=== PATIENT | female | born 1975 | race Caucasian/White ===

== ENCOUNTER 2022-01-17 15:52 | Inpatient (IN) | payer OTHER, SELFPAY ==
--- NOTE | ~2022-01-17 | CT_ITS ---
EXAMINATION: CT ABDOMEN AND PELVIS WITHOUT CONTRAST CLINICAL INFORMATION: Bilateral lower quadrant pain COMPARISON: None TECHNIQUE: Multidetector volumetric imaging was performed from the superior aspect of the liver through the pubic symphysis. Sagittal and coronal reformatted images were obtained on the technologist's workstation. This CT examination was performed using dose optimization techniques as appropriate, variously including the following: *Automated exposure control *Adjustment of mA and/or kV according to patient size (this includes techniques or standardized protocols for targeted exams where dose is matched to indication/reason for exam; i.e. extremities or head) *Use of iterative reconstruction technique DLP: 1550 mGy-cm FINDINGS: LUNG BASES: The visualized lung bases are unremarkable. LIVER, GALLBLADDER, AND BILIARY TREE: Liver is mildly enlarged measuring approximately 17.4 cm in craniocaudal dimension. No appreciable liver lesion. No biliary ductal dilation. The gallbladder is unremarkable with no evidence of radiopaque gallstones, gallbladder wall thickening, or obvious pericholecystic inflammatory changes. PANCREAS: Unremarkable. SPLEEN: Unremarkable. ADRENAL GLANDS: Unremarkable. KIDNEYS AND URETERS: The kidneys are normal in size, shape, and attenuation. No hydronephrosis, hydroureter, or calculi seen. No perinephric stranding. BLADDER: Unremarkable. GASTROINTESTINAL TRACT: Sigmoid diverticulosis with segmental mural thickening of the sigmoid colon and extensive pericolonic inflammatory change compatible with acute diverticulitis. There are a few small bubbles of eccentric soft tissue gas, which are not definitely contained within a colonic diverticulum and may represent a small microperforation on coronal image 41, series 3 image 83. No pericolonic or intramural fluid collection/abscess. There is a small amount of nonloculated free pelvic fluid primarily on the left side. No dilated bowel loops or additional bowel wall thickening. ABDOMINAL WALL: Healed lower midline abdominal incision. No hernia. LYMPH NODES: No lymphadenopathy. VASCULAR: Normal caliber abdominal aorta. PELVIC VISCERA: Status post hysterectomy. Small 1.7 cm low-density probable follicle in the right ovary noted. OSSEOUS STRUCTURES: No acute fracture or suspicious osseous lesion. Grade 1 anterolisthesis at L5-S1 related to chronic bilateral L5 pars defects. Moderate disc degenerative change at L5-S1. Mild multilevel degenerative disc disease throughout the remainder the thoracolumbar spine. Small sclerotic probable bone island in the posterior aspect of L2. Mild retrolisthesis at L1-L2. CT/CT abdomen pelvis wo con IMPRESSION: 1. Findings compatible with acute sigmoid diverticulitis and suspected microperforation with extensive pericolonic inflammatory change and a small amount of pericolonic free fluid. No well formed abscess identified.
--- NOTE | ~2022-01-17 | CT_ITS ---
EXAMINATION: CT ANGIOGRAM CHEST CLINICAL INFORMATION: Stabbing pain to the back COMPARISON: None TECHNIQUE: Multiple axial images were obtained through the chest after the administration of 85 mL of Omnipaque 350 intravenous contrast. Extensive vascular post-processing including two-dimensional and three-dimensional reformatted images were created and reviewed on an independent workstation. This CT examination was performed using dose optimization techniques as appropriate, variously including the following: *Automated exposure control *Adjustment of mA and/or kV according to patient size (this includes techniques or standardized protocols for targeted exams where dose is matched to indication/reason for exam; i.e. extremities or head) *Use of iterative reconstruction technique DLP: 673 mGy-cm FINDINGS: Assessment of the aortic root is suboptimal due to cardiac motion artifact. No evidence of aortic aneurysm or dissection. There is common origin of the brachiocephalic and left common carotid arteries off the aortic arch. Included branch vessels in the upper abdomen appear well-opacified. Dependent atelectasis is noted bilaterally. No additional consolidation. Regions of subpleural cyst formation is noted in the basilar right lower lobe, suspicious for mild regions of fibrosis. There is a right upper lobe nodule measuring 6 mm on image 133/616 medially. No pneumothorax or pleural effusion. The visualized thyroid gland is unremarkable. There are subcentimeter mediastinal lymph nodes within the range of normal variation. Cardiac size is within normal limits; no pericardial effusion. Central pulmonary arteries are well-opacified. No axillary lymphadenopathy is present. Visualized portions of the upper abdomen are within normal limits. Multilevel endplate osteophytes are present in the spine. CT/CT angio chest aorta IMPRESSION: 1. No evidence of aortic dissection or aneurysm. 2. Regions of subpleural cyst formation in the basilar right lower lobe, suspicious for mild fibrosis. 3. Right upper lobe nodule measuring 6 mm. According to the UPDATED 2017 Fleischner Society recommendations, the advised follow-up imaging for a single 6-8 mm solid nodule is: LOW RISK PATIENT: CT at 6-12 months, then consider CT at 18-24 months. HIGH RISK PATIENT: CT at 6-12 months, then at 18-24 months.
--- NOTE | 2022-01-17 16:11 | ECG_ITS ---
Test Reason : aabdominal pain Blood Pressure : / mmHG Vent. Rate : 094 BPM Atrial Rate : 094 BPM P-R Int : 158 ms QRS Dur : 086 ms QT Int : 332 ms P-R-T Axes : 000 -13 014 degrees QTc Int : 415 ms Normal sinus rhythm Normal ECG No previous ECGs available Referred By: Mara López Electronically Signed By:WILLARD MARTINEZ MD
[2022-01-17 17:06] VITALS: BP 136/79; PULSE 97; RESP 18; TEMP 38.3; O2SAT 98; BMI 57.4
[2022-01-17 17:08] LABS: MANUAL DIFF FLAG NO
[2022-01-17 17:26] LABS: Basophils Absolute Auto 0.1 X10*3/uL (0.0-0.2); Basophils Percent Auto 0.3 % (0-2); Eosinophils Absolute Auto 0.1 X10*3/uL (0.0-0.4); Eosinophils Percent Auto 0.9 % (0-4); Hematocrit 47.2 % (37.0-47.0); Hemoglobin 15.1 g/dl (12.0-16.0); Imm Gran Abs Auto 0.04 X10*3/uL (0.00-0.03); Imm Gran Pct Auto 0.3 % (0.0-0.4); Lymphocytes Absolute Auto 1.4 X10*3/uL (1.2-4.9); Lymphocytes Percent Auto 9.9 % (20-40); Mean Corpuscular Hemoglobin 28.6 pg (27.0-33.0); Mean Corpuscular Volume 89.4 fL (80.0-98.0); Mean Platelet Volume 10.9 fL (9.4-12.3); Monocytes Absolute Auto 1.3 X10*3/uL (0.1-1.2); Monocytes Percent Auto 8.7 % (2-11); Neutrophils Absolute Auto 11.5 x10*3/uL (2.0-8.3); Neutrophils Percent Auto 79.9 % (45-73); Platelet Count 241 X10*3/uL (160-400); Red Blood Count 5.28 X10*6/uL (4.20-5.50); Red Cell Distribution Width 13.3 % (11.0-16.0); White Blood Count 14.4 X10*3/uL (4.8-10.8)
[2022-01-17 17:27] LABS: Appearance Urine CLEAR; Color Urine YELLOW; Glucose Urine UA NEG (NEG); Leukocyte Esterase Urine NEG (NEG); Nitrite Urine NEG (NEG); Urine Blood NEG (NEG); Urine Ketones NEG (NEG); Urine Protein NEG (NEG-TRACE)
[2022-01-17 17:43] LABS: Alanine Aminotransferase 23 U/L (0-31); Albumin Level 4.1 g/dL (3.5-5.0); Alkaline Phosphatase 97 U/L (39-117); Anion Gap 15 (12-20); Aspartate Amino Transferase 17 U/L (5-31); Bilirubin Direct 0.3 mg/dL (0.0-0.5); Bilirubin Total 0.7 mg/dL (0.0-1.0); Blood Urea Nitrogen 10 mg/dL (9-16); Calcium 9.1 mg/dL (8.4-10.2); Carbon Dioxide 25 mmol/L (22-29); Chloride 102 mmol/L (96-108); Creatinine Clr Calc Pharmacy 140.6; Estimated Glomerular Filt Rate > 60; Glucose Random 97 mg/dL (60-115); Lipase 14 U/L (8-78); Potassium 4.7 mmol/L (3.3-5.1); Sodium 137 mmol/L (135-145); Total Protein 7.5 g/dL (6.5-8.0)
[2022-01-17 17:50] LABS: HCG Quantitative < 2 mIU/mL
--- NOTE | 2022-01-17 18:23 | ED_ITS ---
HPI - Abdominal Pain General Chief Complaint: Abdominal Pain Stated Complaint: severe lower abd pain Time Seen by Provider: 01/17/22 16:11 History of Present Illness HPI narrative: Patient comes to the emergency room complaining of severe left and right lower quadrant pain. Before coming to the emergency room, patient was seen at urgent care. Patient had an acute abdomen and was sent to the emergency room for further evaluation. Patient refused to come by ambulance. Patient states that yesterday around 20:00, he started having intense lower abdominal pain, gradually getting much worse. Related Data Home Medications Medication Instructions Recorded Confirmed acetaminophen 325 mg tablet 650 mg PO Q6H PRN 01/17/22 (Tylenol) cholecalciferol (vitamin D3) 125 125 mcg PO DAILY 01/17/22 mcg (5,000 unit) capsule ferrous sulfate 325 mg (65 mg 325 mg PO DAILY 01/17/22 iron) tablet leflunomide 20 mg tablet 20 mg PO DAILY 01/17/22 valsartan 160 mg tablet 160 mg PO DAILY 01/17/22 Allergies Allergy/AdvReac Type Severity Reaction Status Date / Time No Known Allergies Allergy Verified 01/17/22 17:06 [No Known Allergies*] Review of Systems Review of Systems Constitutional : No Weight loss, No Fever, No Chills, No Night Sweats, No Fatigue, No Malaise ENT/Mouth : No Hearing loss, No Ear Pain, No Nasal Congestion, No Sinus Pain, No Hoarseness, No sore throat, No Rhinorrhea, No Swallowing Difficulty Eyes: No Eye Pain, No Swelling, No Redness, No Foreign Body, No Discharge, No V ision Changes Cardiovascular : No Chest Pain, No SOB, No Dyspnea on Exertion, No Orthopnea, No Edema, No Palpitations Respiratory : No Cough, No Sputum, No Wheezing, No Smoke Exposure, No Dyspnea Gastrointestinal : No Nausea, No Vomiting, No Diarrhea, No Constipation, significant abdominal pain in both lower quadrants Genitourinary : no irregular bleeding, No Dysuria, No Urinary Frequency, No [place] turia, No Urinary Incontinence, No Urgency, No Flank Pain, No Urinary Flow Changes, No Hesitancy Musculoskeletal : No joint pain, No Myalgias, No Joint Swelling Skin : No Skin Lesions, No rash Neuro : No Weakness, No Numbness, No Paresthesias, No Loss of Consciousness, No Dizziness, No Headache Psych : No Anxiety/Panic, No Depression, No SI/HI/AH/VH, No Social Issues, Heme/Lymph: No Bruising, No Bleeding,No Lymphadenopathy Endocrine : No Polyuria, No Polydipsia, No Temperature Intolerance [facility] Past Medical History Medical History (Updated 01/17/22 @ 19:16 by Mara López MD) Hypertension Morbid obesity Surgical History (Updated 01/17/22 @ 18:33 by Mara López MD) History of hysterectomy Social History Social History Advance Directives: No Advance Directives Information Provided: Yes Physical Exam ED Vital Signs: Vital Signs - 24 hr 01/17/22 17:06 01/17/22 18:48 01/17/22 18:53 Temperature 100.9 F H 100.7 F H Pulse Rate 97 100 Respiratory Rate 18 18 19 Blood Pressure 136/79 132/57 L Pulse Oximetry 98 95 Oxygen Delivery Method Room Air BMI result Body Mass Index 57.4 Const Other: Appearance: Alert. Oriented X3. Seems very uncomfortable Eyes: Pupils equal, round and reactive to light. ENT: Pharynx normal. Neck: Normal inspection. Neck supple. No lymph nodes noted. No crepitus CVS: Normal heart rate and rhythm. Pulses normal. Normal S1 and S2 Respiratory: No respiratory distress. Breath sounds normal. No Wheezing. No rales Abdomen: Soft , slightly distended, significant pain to palpation in both lower quadrants Skin: Skin warm and dry. Normal skin color. Normal skin turgor. Extremities: No lower extremity edema. No Lacerations. No Rash Neuro: Oriented X 3. No motor deficit. No sensory deficit. Moving all extremities. No slurred speech. CN 2 through 12 grossly intact Psych: calm, cooperative, normal affect Course Course Course Narrative: I received a phone call from YOUSIF Khan. Unfortunately, this time there are no beds available in the main ED. Labs were obtained since the patient was in the waiting room in order to expedite seeing this patient. I reviewed the CT scan, I believe there is a perforation, free air in the abdomen. We already requested for Radiology to take a look at the CT scan. Patient is receiving IV fluids based on ideal weight of 55 kg, Zosyn has been started. Some of the labs are still pending. CT scan shows diverticulitis with microperforation. I discussed the patient with Dr. Moon, she is on her way to assess the patient. Patient received 1 mg of Dilaudid, did that she feels much better at this time. MDM - Abdominal Pain Lab Data Result diagrams: 01/17/22 17:02 01/17/22 17:02 Labs: Lab Results 01/17/22 01/17/22 01/17/22 Range/Units 17:01 17:02 17:02 WBC 14.4 H (4.8-10.8) X10*3/uL RBC 5.28 (4.20-5.50) X10*6/uL Hgb 15.1 (12.0-16.0) g/dl Hct 47.2 H (37.0-47.0) % MCV 89.4 (80.0-98.0) fL MCH 28.6 (27.0-33.0) pg MCHC 32.0 (31.0-35.0) g/dl RDW 13.3 (11.0-16.0) % Plt Count 241 (160-400) X10*3/uL MPV 10.9 (9.4-12.3) fL Immature Gran % (Auto) 0.3 (0.0-0.4) % Neut % (Auto) 79.9 H (45-73) % Lymph % (Auto) 9.9 L (20-40) % [place] % (Auto) 8.7 (2-11) % Eos % (Auto) 0.9 (0-4) % Baso % (Auto) 0.3 (0-2) % Lymph # (Auto) 1.4 (1.2-4.9) X10*3/uL [place] # (Auto) 1.3 H (0.1-1.2) X10*3/uL Eos # (Auto) 0.1 (0.0-0.4) X10*3/uL Baso # (Auto) 0.1 (0.0-0.2) X10*3/uL Abs Immat Gran (auto) 0.04 H (0.00-0.03) X10*3/uL Absolute Neuts (auto) 11.5 H (2.0-8.3) x10*3/uL Absolute Nucleated RBC 0.000 (0.0-0.012) X10*3/uL Nucleated RBC % (auto) 0.0 (0.0-0.2) /100WBC Sodium 137 (135-145) mmol/L Potassium 4.7 (3.3-5.1) mmol/L Chloride 102 (96-108) mmol/L Carbon Dioxide 25 (22-29) mmol/L Anion Gap 15 (12-20) BUN 10 (9-16) mg/dL Creatinine 0.78 (0.5-1.4) mg/dL Estim Creat Clear Calc 140.6 Estimated GFR > 60 Random Glucose 97 (60-115) mg/dL Lactic Acid (0.5-2.0) mmol/L Calcium 9.1 (8.4-10.2) mg/dL Total Bilirubin 0.7 (0.0-1.0) mg/dL Direct Bilirubin 0.3 (0.0-0.5) mg/dL AST 17 (5-31) U/L ALT 23 (0-31) U/L Alkaline Phosphatase 97 (39-117) U/L Total Protein 7.5 (6.5-8.0) g/dL Albumin 4.1 (3.5-5.0) g/dL Lipase (8-78) U/L Beta HCG, Quant mIU/mL Urine Color YELLOW Urine Appearance CLEAR Urine pH 6.0 (5.0-8.0) Ur Specific [place] 1.020 (1.005-1.025) Urine Protein NEG (NEG-TRACE) MG/DL Urine Glucose (UA) NEG (NEG) MG/DL Urine Ketones NEG (NEG) MG/DL Urine Blood NEG (NEG) Urine Nitrite NEG (NEG) Ur Leukocyte Esterase NEG (NEG) 01/17/22 01/17/22 Range/Units 17:02 18:42 WBC (4.8-10.8) X10*3/uL RBC (4.20-5.50) X10*6/uL Hgb (12.0-16.0) g/dl Hct (37.0-47.0) % MCV (80.0-98.0) fL MCH (27.0-33.0) pg MCHC (31.0-35.0) g/dl RDW (11.0-16.0) % Plt Count (160-400) X10*3/uL MPV (9.4-12.3) fL Immature Gran % (Auto) (0.0-0.4) % Neut % (Auto) (45-73) % Lymph % (Auto) (20-40) % [place] % (Auto) (2-11) % Eos % (Auto) (0-4) % Baso % (Auto) (0-2) % Lymph # (Auto) (1.2-4.9) X10*3/uL [place] # (Auto) (0.1-1.2) X10*3/uL Eos # (Auto) (0.0-0.4) X10*3/uL Baso # (Auto) (0.0-0.2) X10*3/uL Abs Immat Gran (auto) (0.00-0.03) X10*3/uL Absolute Neuts (auto) (2.0-8.3) x10*3/uL Absolute Nucleated RBC (0.0-0.012) X10*3/uL Nucleated RBC % (auto) (0.0-0.2) /100WBC Sodium (135-145) mmol/L Potassium (3.3-5.1) mmol/L Chloride (96-108) mmol/L Carbon Dioxide (22-29) mmol/L Anion Gap (12-20) BUN (9-16) mg/dL Creatinine (0.5-1.4) mg/dL Estim Creat Clear Calc Estimated GFR Random Glucose (60-115) mg/dL Lactic Acid 1.2 (0.5-2.0) mmol/L Calcium (8.4-10.2) mg/dL Total Bilirubin (0.0-1.0) mg/dL Direct Bilirubin (0.0-0.5) mg/dL AST (5-31) U/L ALT (0-31) U/L Alkaline Phosphatase (39-117) U/L Total Protein (6.5-8.0) g/dL Albumin (3.5-5.0) g/dL Lipase 14 (8-78) U/L Beta HCG, Quant < 2 mIU/mL Urine Color Urine Appearance Urine pH (5.0-8.0) Ur Specific [place] (1.005-1.025) Urine Protein (NEG-TRACE) MG/DL Urine Glucose (UA) (NEG) MG/DL Urine Ketones (NEG) MG/DL Urine Blood (NEG) Urine Nitrite (NEG) Ur Leukocyte Esterase (NEG) Imaging Data CT scan - abdomen: Radiologist's impression: FINDINGS: LUNG BASES: The visualized lung bases are unremarkable.? LIVER, GALLBLADDER, AND BILIARY TREE: Liver is mildly enlarged measuring approximately 17.4 cm in craniocaudal dimension. No appreciable liver lesion. No biliary ductal dilation. The gallbladder is unremarkable with no evidence of radiopaque gallstones, gallbladder wall thickening, or obvious pericholecystic inflammatory changes.? PANCREAS: Unremarkable.? SPLEEN: Unremarkable.? ADRENAL GLANDS: Unremarkable.? KIDNEYS AND URETERS: The kidneys are normal in size, shape, and attenuation. No hydronephrosis, hydroureter, or calculi seen. No perinephric stranding. ? BLADDER: Unremarkable.? GASTROINTESTINAL TRACT: Sigmoid diverticulosis with segmental mural thickening of the sigmoid colon and extensive pericolonic inflammatory change compatible with acute diverticulitis. There are a few small bubbles of eccentric soft tissue gas, which are not definitely contained within a colonic diverticulum and may represent a small microperforation on coronal image 41, series 3 image 83. No pericolonic or intramural fluid collection/abscess. There is a small amount of nonloculated free pelvic fluid primarily on the left side. No dilated bowel loops or additional bowel wall thickening. ABDOMINAL WALL: Healed lower midline abdominal incision. No hernia.? LYMPH NODES: No lymphadenopathy. VASCULAR: Normal caliber abdominal aorta. PELVIC VISCERA: Status post hysterectomy. Small 1.7 cm low-density probable follicle in the right ovary noted.? OSSEOUS STRUCTURES: No acute fracture or suspicious osseous lesion. Grade 1 anterolisthesis at L5-S1 related to chronic bilateral L5 pars defects. Moderate disc degenerative change at L5-S1. Mild multilevel degenerative disc disease throughout the remainder the thoracolumbar spine. Small sclerotic probable bone island in the posterior aspect of L2. Mild retrolisthesis at L1-L2.? CT/CT abdomen pelvis wo con IMPRESSION: ? 1. Findings compatible with acute sigmoid diverticulitis and suspected microperforation with extensive pericolonic inflammatory change and a small amount of pericolonic free fluid. No well formed abscess identified. Discharge Plan Discharge Clinical Impression: Diverticulitis of colon with perforation Patient Disposition: Admitted As Inpatient Prescriptions: No Action valsartan 160 mg tablet 160 mg PO DAILY leflunomide 20 mg tablet 20 mg PO DAILY ferrous sulfate 325 mg (65 mg iron) tablet 325 mg PO DAILY cholecalciferol (vitamin D3) 125 mcg (5,000 unit) capsule 125 mcg PO DAILY acetaminophen [Tylenol] 325 mg tablet 650 mg PO Q6H PRN
[2022-01-17] MEDS: 0.9 % Sodium Chloride 2,000 ML 999 ML IVCONT (18:47)
[2022-01-17 18:48] VITALS: RESP 18
[2022-01-17] MEDS: ondansetron HCL 4 MG/2 ML VIAL IVPUSH (18:48)
[2022-01-17] MEDS: HYDROmorphone HCl 1 MG/ML SYRINGE IVPUSH (18:48)
[2022-01-17] MEDS: Piperacillin Sodium/Tazobactam 4.5 GM in 0.9 % Sodium Chloride 100 ML IV (18:50)
[2022-01-17 18:53] VITALS: BP 132/57; PULSE 100; RESP 19; TEMP 38.2; O2SAT 95
[2022-01-17 19:05] LABS: Lactic Acid 1.2 mmol/L (0.5-2.0)
[2022-01-17 19:13] LABS: Prothrombin Time 11.6 SEC (10.0-13.1)
--- NOTE | 2022-01-17 19:31 | PHA.MEDREC ---
Pharmacy Consult ? Medication Reconciliation Pharmacy has completed the medication reconciliation. Pt able to name entire med list at bedside; noted she recently switched from lisinopril to valsartan today. Also noted she uses flecainide and diltiazem as needed for afib, last took in early December.
[2022-01-17 20:57] VITALS: BP 122/49; PULSE 97; RESP 14; O2SAT 98
--- NOTE | 2022-01-17 21:10 | PM.HPGS ---
History of Present Illness History of Present Illness Date of Service: 01/17/22 Chief complaint: Diverticulitis with microperforation Narrative: Caryl Fraga is a 46 year old female who comes in after 3 day history of not feeling well and then having ongoing continuing pain in her suprapubic left lower quadrant area today. She started not feeling well on Saturday after going out in eating. Then the other 2 days were not so bad that things got worse today and as result she came into the hospital. Mainly pain she denies any constipation or diarrhea no blood in her stools no trouble with urination. She denies any fevers or chills. She has never had pain like this before. She has had a hysterectomy about 5 years ago and no other intra-abdominal surgery. She has no family history that she knows of in regards to cancers or diverticulosis. She has never had a colonoscopy before Review of Systems Review of Systems: Yes all other systems are reviewed and are negative PMF Past Medical History Medical History (Updated 01/17/22 @ 19:16 by Mara López MD) Hypertension Morbid obesity Cognitive capacity: hysterectomy Surgical History Surgical History (Updated 01/17/22 @ 18:33 by Mara López MD) History of hysterectomy Social History Social History Alcohol intake: current Alcohol intake frequency: holidays/special occasions only Patient Tobacco Use Status: Never used Tobacco Use of substances other than those prescribed or required for medical reasons: No Advance Directives: No Advance Directives Information Provided: Yes Meds Allergies Allergy/AdvReac Type Severity Reaction Status Date / Time No Known Allergies Allergy Verified 01/17/22 17:06 [No Known Allergies*] Active Medications: Current Medications Sodium Chloride (Ns) 1,000 mls @ 100 mls/hr IVCONT .Q10H [place] Piperacillin Sod/Tazobactam (Sod 3.375 gm/ Sodium Chloride) 50 mls @ 100 mls/hr IV RQ6H ONE Stop: 01/17/22 21:35 Ketorolac Tromethamine (Ketorolac Tromethamine 30 Mg/Ml Vial) 30 mg IVPUSH RQ6H PRN PRN Reason: Pain, Severe (Pain Scale 7-10) Ondansetron HCl (Ondansetron Hcl 4 Mg/2 Ml Vial) 4 mg IVPUSH Q8H PRN PRN Reason: Nausea and Vomiting Sodium Chloride (0.9 % Sodium Chloride Flush 3 Ml Syringe) 3 ml IVFLUSH QSHIFT [facility] Home Medications Medication Instructions Recorded Confirmed Last Taken Type acetaminophen 325 mg tablet 650 mg PO Q6H PRN Pain 01/17/22 01/17/22 Unknown History (Tylenol) cholecalciferol (vitamin D3) 125 125 mcg PO DAILY 01/17/22 01/17/22 01/17/22 History mcg (5,000 unit) capsule diltiazem HCl 30 mg tablet 1 tab PO NEEDED PRN Atrial 01/17/22 01/17/22 Unknown History Fibrillation ferrous sulfate 325 mg (65 mg 325 mg PO DAILY 01/17/22 01/17/22 01/17/22 History iron) tablet flecainide 150 mg tablet 2 tab PO NEEDED PRN Atrial 01/17/22 01/17/22 Unknown History Fibrillation leflunomide 20 mg tablet 20 mg PO DAILY 01/17/22 01/17/22 01/17/22 History valsartan 160 mg tablet 160 mg PO DAILY 01/17/22 01/17/22 01/17/22 History Physical Exam Vital Signs: Vital Signs: Last Vital Signs Temp 100.7 F H 01/17/22 18:53 Pulse 97 01/17/22 20:57 Resp 14 01/17/22 20:57 BP 122/49 L 01/17/22 20:57 Pulse Ox 98 01/17/22 20:57 O2 Del Method 01/17/22 20:57 BMI result Body Mass Index 57.4 Const: General: cooperative and acute distress mild Nutritional Appearance: obese Orientation/consciousness: oriented to person, oriented to place and oriented to time HEENT: Head: Yes normal to inspection Neck: Neck: Yes normal visual inspection Resp: Effort & Inspection: normal respiratory effort Auscultation: clear to auscultation bilaterally Cardio: Rate: regular rate Rhythm: regular rhythm GI: Other: abdomen is soft obese she is tender in the left lower quadrant area to the suprapubic thi area and guarding some localized rebound no peritoneal signs Inspection: Yes normal to inspection Skin: General skin exam: no rashes or lesions noted Neuro: General: oriented to person, oriented to place and oriented to time Extrem: General: Yes normal to inspection and Yes full ROM Results Results Labs: Short CBC 01/17/22 Range/Units 17:02 WBC 14.4 H (4.8-10.8) X10*3/uL Hgb 15.1 (12.0-16.0) g/dl Hct 47.2 H (37.0-47.0) % Plt Count 241 (160-400) X10*3/uL BMP 01/17/22 17:02 Sodium 137 Potassium 4.7 Chloride 102 Carbon Dioxide 25 BUN 10 Creatinine 0.78 Calcium 9.1 Liver Function 01/17/22 Range/Units 17:02 Total Bilirubin 0.7 (0.0-1.0) mg/dL Direct Bilirubin 0.3 (0.0-0.5) mg/dL AST 17 (5-31) U/L ALT 23 (0-31) U/L Alkaline Phosphatase 97 (39-117) U/L Albumin 4.1 (3.5-5.0) g/dL Urine 01/17/22 Range/Units 17:01 Urine Color YELLOW Urine Appearance CLEAR Urine pH 6.0 (5.0-8.0) Ur Specific [place] 1.020 (1.005-1.025) Urine Protein NEG (NEG-TRACE) MG/DL Urine Glucose (UA) NEG (NEG) MG/DL Abdomen CT scan report/results: report reviewed and image reviewed CT scan - pelvis: report reviewed and image reviewed Assessment and Plan (1) Diverticulitis of colon with perforation: Status: Acute Plan 46-year-old female with diverticulitis and localize small micro perforation of the sigmoid colon. Hemodynamically stable and exam stable. Plan is to try conservative care and get her better with NPO IV fluids and IV antibiotics. We discussed the significantly. If she does not improve then she may need urgent surgery which would require most likely colostomy creation. She would rather not have this. I think she will do better with this conservative care and if we can get her to the point where after couple days of IV antibiotics get her back on a p.o. diet and convert her to p.o. antibiotics and an carry out colonoscopy in about 2 months time and and manage her diet such that she will not have further complicated diverticulitis and she should be okay. She and her partner would like very much to make this happen. We will admit her carry out blood work in the morning and hopefully her exam will have improved Quality Stroke Does the patient have a stroke diagnosis?: No VTE Prior VTE?: No VTE Risk Level:: Surgical - low VTE Device Contraindication: N/A - Device Ordered VTE Drug Contraindication: N/A - Med Ordered Procedures Date of Service Date of Service: 01/17/22
[2022-01-17 21:49] VITALS: BP 127/74; PULSE 95; RESP 16; TEMP 37.6; O2SAT 95
--- NOTE | 2022-01-17 21:53 | PC.NURSE ---
pt resting in bed. in no distress
[2022-01-17 23:02] VITALS: BP 128/77; PULSE 91; TEMP 38.7; O2SAT 97
[2022-01-17] MEDS: 0.9 % Sodium Chloride 1,000 ML 100 ML IVCONT (23:13)
[2022-01-17] MEDS: Morphine Sulfate 4 MG/ML CARTRIDGE IVPUSH (23:17)
--- NOTE | 2022-01-17 23:24 | PC.NURSE ---
Report given to Renetta FRIED. Pt has been NPO for the duration of ER stay
[2022-01-17 23:36] LABS: COVID-19 Test Negative (Negative); IDNOW Serial# 55D5AD1C
[2022-01-18] MEDS: Piperacillin Sodium/Tazobactam 3.375 GM in 0.9 % Sodium Chloride 50 ML IV ×2 (01:31→06:11)
[2022-01-18] MEDS: 0.9 % Sodium Chloride Flush 3 ML SYRINGE IVFLUSH (01:31)
[2022-01-18 05:28] VITALS: RESP 14
[2022-01-18] MEDS: Morphine Sulfate 4 MG/ML CARTRIDGE IVPUSH ×2 (05:28→19:43)
[2022-01-18 07:00] LABS: MANUAL DIFF FLAG NO
[2022-01-18 07:13] LABS: Basophils Absolute Auto 0.1 X10*3/uL (0.0-0.2); Basophils Percent Auto 0.4 % (0-2); Eosinophils Absolute Auto 0.1 X10*3/uL (0.0-0.4); Eosinophils Percent Auto 0.4 % (0-4); Hematocrit 39.3 % (37.0-47.0); Hemoglobin 12.5 g/dl (12.0-16.0); Imm Gran Abs Auto 0.06 X10*3/uL (0.00-0.03); Imm Gran Pct Auto 0.4 % (0.0-0.4); Lymphocytes Percent Auto 7.4 % (20-40); Mean Corpuscular HGB Conc 31.8 g/dl (31.0-35.0); Mean Corpuscular Hemoglobin 28.7 pg (27.0-33.0); Mean Corpuscular Volume 90.3 fL (80.0-98.0); Mean Platelet Volume 11.1 fL (9.4-12.3); Monocytes Absolute Auto 1.2 X10*3/uL (0.1-1.2); Neutrophils Absolute Auto 11.1 x10*3/uL (2.0-8.3); Neutrophils Percent Auto 82.4 % (45-73); Platelet Count 200 X10*3/uL (160-400); Red Blood Count 4.35 X10*6/uL (4.20-5.50); Red Cell Distribution Width 13.5 % (11.0-16.0); White Blood Count 13.5 X10*3/uL (4.8-10.8)
[2022-01-18 07:26] LABS: Anion Gap 11 (12-20); Blood Urea Nitrogen 7 mg/dL (9-16); Carbon Dioxide 23 mmol/L (22-29); Chloride 105 mmol/L (96-108); Creatinine Clr Calc Pharmacy 148.2; Estimated Glomerular Filt Rate > 60; Glucose Random 113 mg/dL (60-115); Potassium 3.9 mmol/L (3.3-5.1); Sodium 135 mmol/L (135-145)
[2022-01-18 07:41] LABS: Calcium 7.9 mg/dL (8.4-10.2)
[2022-01-18] MEDS: 0.9 % Sodium Chloride 1,000 ML 100 ML IVCONT ×2 (08:40→18:48)
--- NOTE | 2022-01-18 08:53 | PM.PNGS ---
Subjective Subjective Date of Service: 01/18/22 Interval history: Says she has left lower quadrant pain althoughl less compared to yesterday No nausea or vomiting Physical Exam Vital Signs: Vital Signs: Last Vital Signs Temp 101.7 F H 01/17/22 23:02 Pulse 91 01/17/22 23:02 Resp 14 01/18/22 05:28 BP 128/77 01/17/22 23:02 Pulse Ox 97 01/17/22 23:02 O2 Del Method 01/17/22 23:02 BMI result Body Mass Index 57.4 Const: Other: Morbidly obese General: comfortable and no acute distress Resp: Effort & Inspection: normal respiratory effort Cardio: Rhythm: regular rhythm GI: Other: Obese, soft tender in the left lower quadrant Palpation (GI): no guarding Objective Data Active Medications Diltiazem HCl (Diltiazem Hcl 30 Mg Tablet) 30 mg PO DAILY PRN; Protocol PRN Reason: atrial fibrillation Sodium Chloride (Ns) 1,000 mls @ 100 mls/hr IVCONT .Q10H [facility] Last Admin: 01/18/22 08:40 Dose: 100 mls/hr Documented By: ADIA Piperacillin Sod/Tazobactam (Sod 3.375 gm/ Sodium Chloride) 50 mls @ 100 mls/hr IV Q6H [facility] Last Infusion: 01/18/22 07:42 Dose: 0 mls/hr Documented By: ADIA Ketorolac Tromethamine (Ketorolac Tromethamine 30 Mg/Ml Vial) 30 mg IVPUSH Q6H PRN PRN Reason: Pain, Severe (Pain Scale 7-10) Leflunomide (Leflunomide 10 Mg Tablet) 20 mg PO DAILY [facility] Morphine Sulfate (Morphine Sulfate 4 Mg/Ml Cartridge) 4 mg IVPUSH Q4H PRN; Protocol PRN Reason: Pain, Severe (Pain Scale 7-10) Last Admin: 01/18/22 05:28 Dose: 4 mg Documented By: TRICIA Ondansetron HCl (Ondansetron Hcl 4 Mg/2 Ml Vial) 4 mg IVPUSH Q8H PRN PRN Reason: Nausea and Vomiting Sodium Chloride (0.9 % Sodium Chloride Flush 3 Ml Syringe) 3 ml IVFLUSH QSHIFT [facility] Last Admin: 01/18/22 08:43 Dose: Not Given Documented By: ADIA Non-Admin Reason: IV Running Valsartan (Valsartan 160 Mg Tablet) 160 mg PO DAILY [facility]; Protocol Labs CBC & Chem 7: 01/18/22 06:41 01/18/22 06:41 Labs: Laboratory Results - last 24 hr 01/17/22 01/17/22 01/17/22 17:01 17:02 17:02 MCV 89.4 MCH 28.6 MCHC 32.0 RDW 13.3 Plt Count 241 MPV 10.9 Immature Gran % (Auto) 0.3 Neut % (Auto) 79.9 H Lymph % (Auto) 9.9 L [place] % (Auto) 8.7 Eos % (Auto) 0.9 Baso % (Auto) 0.3 Lymph # (Auto) 1.4 [place] # (Auto) 1.3 H Eos # (Auto) 0.1 Baso # (Auto) 0.1 Abs Immat Gran (auto) 0.04 H Absolute Neuts (auto) 11.5 H Absolute Nucleated RBC 0.000 Nucleated RBC % (auto) 0.0 PT INR APTT Anion Gap 15 Estim Creat Clear Calc 140.6 Estimated GFR > 60 Random Glucose 97 Lactic Acid Calcium 9.1 Total Bilirubin 0.7 Direct Bilirubin 0.3 AST 17 ALT 23 Alkaline Phosphatase 97 Total Protein 7.5 Albumin 4.1 Lipase Beta HCG, Quant Urine Color YELLOW Urine Appearance CLEAR Urine pH 6.0 Ur Specific [place] 1.020 Urine Protein NEG Urine Glucose (UA) NEG Urine Ketones NEG Urine Blood NEG Urine Nitrite NEG Ur Leukocyte Esterase NEG COVID-19 ([facility]) COVID-19 Clin Com 01/17/22 01/17/22 01/17/22 17:02 18:42 18:42 MCV MCH MCHC RDW Plt Count MPV Immature Gran % (Auto) Neut % (Auto) Lymph % (Auto) [place] % (Auto) Eos % (Auto) Baso % (Auto) Lymph # (Auto) [place] # (Auto) Eos # (Auto) Baso # (Auto) Abs Immat Gran (auto) Absolute Neuts (auto) Absolute Nucleated RBC Nucleated RBC % (auto) PT 11.6 INR 1.0 APTT 37.0 Anion Gap Estim Creat Clear Calc Estimated GFR Random Glucose Lactic Acid 1.2 Calcium Total Bilirubin Direct Bilirubin AST ALT Alkaline Phosphatase Total Protein Albumin Lipase 14 Beta HCG, Quant < 2 Urine Color Urine Appearance Urine pH Ur Specific [place] Urine Protein Urine Glucose (UA) Urine Ketones Urine Blood Urine Nitrite Ur Leukocyte Esterase COVID-19 ([facility]) COVID-19 [employer] 01/17/22 01/18/22 01/18/22 23:11 06:41 06:41 MCV 90.3 MCH 28.7 MCHC 31.8 RDW 13.5 Plt Count 200 MPV 11.1 Immature Gran % (Auto) 0.4 Neut % (Auto) 82.4 H Lymph % (Auto) 7.4 L [place] % (Auto) 9.0 Eos % (Auto) 0.4 Baso % (Auto) 0.4 Lymph # (Auto) 1.0 L [place] # (Auto) 1.2 Eos # (Auto) 0.1 Baso # (Auto) 0.1 Abs Immat Gran (auto) 0.06 H Absolute Neuts (auto) 11.1 H Absolute Nucleated RBC 0.000 Nucleated RBC % (auto) 0.0 PT INR APTT Anion Gap 11 L Estim Creat Clear Calc 148.2 Estimated GFR > 60 Random Glucose 113 Lactic Acid Calcium 7.9 L D Total Bilirubin Direct Bilirubin AST ALT Alkaline Phosphatase Total Protein Albumin Lipase Beta HCG, Quant Urine Color Urine Appearance Urine pH Ur Specific [place] Urine Protein Urine Glucose (UA) Urine Ketones Urine Blood Urine Nitrite Ur Leukocyte Esterase COVID-19 ([facility]) Negative COVID-19 Clin Com See Note Procedures Date of Service Date of Service: 01/18/22 Progress Note: A&P Assessment and plan (1) Diverticulitis of colon with perforation: Status: Acute Assessment and Plan: History reviewed CT scan reviewed Microperforation from sigmoid diverticulitis Exam benign at this time WBC slightly decreased this morning Continue IV antibiotics Bowel rest Explained plan to patient She seems to understand well Time Spent With Patient Time: Total time spent is greater than 50% in coordination of care (as documented) at patient's floor/unit and/or counseling patient: Quality Stroke Does the patient have a stroke diagnosis?: No VTE Prior VTE?: No VTE Risk Level:: Surgical - low VTE Device Contraindication: N/A - Device Ordered VTE Drug Contraindication: N/A - Med Ordered
[2022-01-18 09:10] VITALS: BP 139/76; PULSE 83; RESP 16; TEMP 37.1; O2SAT 98
[2022-01-18] MEDS: Valsartan 160 MG TABLET PO (09:12)
[2022-01-18] MEDS: Leflunomide 10 MG TABLET 20 MG PO (10:17)
[2022-01-18] MEDS: Ketorolac Tromethamine 30 MG/ML VIAL IVPUSH ×2 (10:22→18:48)
--- NOTE | 2022-01-18 12:41 | PC.NURSE ---
call placed to pharmacy for zosyn.
--- NOTE | 2022-01-18 14:42 | MHC.CM.PN ---
Met with patient in regards to discharge planning. Patient lives with her and 4 children, ambulates independently and had no services prior to coming to the hospital. No services anticipated to be needed because patient is not homebound. PCP verified. Patient has a HCP at home and will attempt to obtain a copy. Patient 2 Moderna vaccines and 1 Pfizer. Patient has transport home when medically stable. Continue to monitor for d/c needs.
--- NOTE | 2022-01-18 14:45 | PM.EVENT ---
Event Note Date of Service: 01/18/22 Event Note: Seen on afternoon rounds Says she feels better Pain level improved Abdomen remained soft, no guarding /rebound She looks comfortable Continue IV Zosyn Bowel rest
[2022-01-18 17:03] VITALS: BP 145/89; PULSE 64; RESP 16; TEMP 37.7; O2SAT 98
[2022-01-18 19:46] VITALS: TEMP 38.1
[2022-01-18 20:00] VITALS: BP 113/68; PULSE 84; RESP 20; TEMP 38.3; O2SAT 96
[2022-01-18] MEDS: Acetaminophen 325 MG TABLET 1000 MG PO (22:11)
[2022-01-18 23:44] VITALS: BP 105/55; PULSE 78; RESP 18; TEMP 36.5; O2SAT 96
[2022-01-19] MEDS: 0.9 % Sodium Chloride Flush 3 ML SYRINGE IVFLUSH (02:21)
[2022-01-19 03:36] VITALS: BP 126/70; PULSE 82; RESP 18; TEMP 36.3; O2SAT 98
[2022-01-19] MEDS: 0.9 % Sodium Chloride 1,000 ML 100 ML IVCONT ×2 (03:45→17:34)
[2022-01-19 07:33] VITALS: BP 129/70; PULSE 91; RESP 16; TEMP 37.1; O2SAT 97
[2022-01-19] MEDS: Ketorolac Tromethamine 30 MG/ML VIAL IVPUSH ×2 (07:54→15:07)
[2022-01-19] MEDS: Leflunomide 10 MG TABLET 20 MG PO (07:54)
[2022-01-19] MEDS: Valsartan 160 MG TABLET PO (07:54)
--- NOTE | 2022-01-19 08:44 | PM.PNGS ---
Subjective Subjective Date of Service: 01/19/22 Interval history: says she still has pain but feels this is better compared to on admission had fever yesterday afebrile today descibes some loose stools Physical Exam Vital Signs: Vital Signs: Last Vital Signs Temp 98.8 F 01/19/22 07:33 Pulse 91 01/19/22 07:33 Resp 16 01/19/22 07:33 BP 129/70 01/19/22 07:33 Pulse Ox 97 01/19/22 07:33 O2 Del Method 01/19/22 07:33 BMI result Body Mass Index 57.4 Const: Other: morbidly obese General: no acute distress Resp: Other: uses CPAP at night Effort & Inspection: normal respiratory effort Cardio: Rate: regular rate GI: Other: obese, soft, tender on lower abd, no guarding or rebound Objective Data Active Medications Acetaminophen (Acetaminophen 325 Mg Tablet) 1,000 mg PO Q6H PRN PRN Reason: temperature Last Admin: 01/18/22 22:11 Dose: 1,000 mg Documented By: SAMANTHA Diltiazem HCl (Diltiazem Hcl 30 Mg Tablet) 30 mg PO DAILY PRN; Protocol PRN Reason: atrial fibrillation Sodium Chloride (Ns) 1,000 mls @ 100 mls/hr IVCONT .Q10H [facility] Last Admin: 01/19/22 03:45 Dose: 100 mls/hr Documented By: SAMANTHA Piperacillin Sod/Tazobactam (Sod 4.5 gm/ Sodium Chloride) 50 mls @ 100 mls/hr IV Q6H [facility] Last Admin: 01/19/22 07:50 Dose: 100 mls/hr Documented By: BERTHA Ketorolac Tromethamine (Ketorolac Tromethamine 30 Mg/Ml Vial) 30 mg IVPUSH Q6H PRN PRN Reason: Pain, Severe (Pain Scale 7-10) Last Admin: 01/19/22 07:54 Dose: 30 mg Documented By: BERTHA Leflunomide (Leflunomide 10 Mg Tablet) 20 mg PO DAILY [facility] Last Admin: 01/19/22 07:54 Dose: 20 mg Documented By: BERTHA Morphine Sulfate (Morphine Sulfate 4 Mg/Ml Cartridge) 4 mg IVPUSH Q4H PRN; Protocol PRN Reason: Pain, Severe (Pain Scale 7-10) Last Admin: 01/18/22 19:43 Dose: 4 mg Documented By: CELIA Ondansetron HCl (Ondansetron Hcl 4 Mg/2 Ml Vial) 4 mg IVPUSH Q8H PRN PRN Reason: Nausea and Vomiting Sodium Chloride (0.9 % Sodium Chloride Flush 3 Ml Syringe) 3 ml IVFLUSH QSHIFT [facility] Last Admin: 01/19/22 07:59 Dose: Not Given Documented By: BERTHA Non-Admin Reason: IV Running Valsartan (Valsartan 160 Mg Tablet) 160 mg PO DAILY [facility]; Protocol Last Admin: 01/19/22 07:54 Dose: 160 mg Documented By: BERTHA Labs CBC & Chem 7: 01/18/22 06:41 01/18/22 06:41 Microbiology Microbiology Results: Microbiology 01/17/22 18:42 Blood Culture - Preliminary Blood - Venous No growth after 24 hours. 01/17/22 17:02 Blood Culture - Preliminary Blood - Venous No growth after 24 hours. Procedures Date of Service Date of Service: 01/19/22 Progress Note: A&P Assessment and plan (1) Diverticulitis of colon with perforation: Status: Acute Assessment and Plan: microperforation on CT slowly improving exam benign clinically better contine IV Zosyn continue bowel rest ambulate down hallway sister at bedside - they understand plan Time Spent With Patient Time: Total time spent is greater than 50% in coordination of care (as documented) at patient's floor/unit and/or counseling patient: Quality Stroke Does the patient have a stroke diagnosis?: No VTE Prior VTE?: No VTE Risk Level:: Surgical - low VTE Device Contraindication: N/A - Device Ordered VTE Drug Contraindication: N/A - Med Ordered
[2022-01-19 10:12] LABS: Hemoglobin 12.2 g/dl (12.0-16.0); Mean Corpuscular HGB Conc 32.1 g/dl (31.0-35.0); Mean Corpuscular Volume 90.3 fL (80.0-98.0); Mean Platelet Volume 11.2 fL (9.4-12.3); Platelet Count 188 X10*3/uL (160-400); Red Blood Count 4.21 X10*6/uL (4.20-5.50); Red Cell Distribution Width 13.5 % (11.0-16.0); White Blood Count 12.6 X10*3/uL (4.8-10.8)
[2022-01-19 10:38] LABS: Anion Gap 13 (12-20); Blood Urea Nitrogen 9 mg/dL (9-16); Calcium 7.8 mg/dL (8.4-10.2); Carbon Dioxide 20 mmol/L (22-29); Chloride 110 mmol/L (96-108); Creatinine Clr Calc Pharmacy 142.5; Estimated Glomerular Filt Rate > 60; Glucose Random 117 mg/dL (60-115); Potassium 3.6 mmol/L (3.3-5.1); Sodium 139 mmol/L (135-145)
[2022-01-19 11:02] VITALS: BP 126/66; PULSE 85; RESP 16; TEMP 36.5; O2SAT 97
[2022-01-19] MEDS: ondansetron HCL 4 MG/2 ML VIAL IVPUSH (15:07)
[2022-01-19 15:11] VITALS: BP 154/50; PULSE 94; RESP 16; TEMP 37.2; O2SAT 98
[2022-01-19 16:00] LABS: CDiff Gene PCR NEGATIVE (Negative)
--- NOTE | 2022-01-19 17:56 | PM.EVENT ---
Event Note Date of Service: 01/19/22 Event Note: seen on late afternoon rounds says pain seems to be improving looks well she has been ambulating down the hallway WBC steadily decreasing has watery stools check C diff continue current care
[2022-01-19 20:00] VITALS: BP 125/57; PULSE 87; RESP 18; TEMP 36.3; O2SAT 99
[2022-01-19 23:40] VITALS: BP 129/60; PULSE 95; RESP 18; TEMP 36.6; O2SAT 97
[2022-01-20] VITALS (7 sets, daily range): BP systolic 114–145; BP diastolic 55–90; PULSE 83–102; RESP 18; TEMP 36.5–38.3; O2SAT 96–99
--- NOTE | 2022-01-20 | ECG_ITS ---
Test Reason : cp Blood Pressure : / mmHG Vent. Rate : 093 BPM Atrial Rate : 093 BPM P-R Int : 152 ms QRS Dur : 092 ms QT Int : 342 ms P-R-T Axes : 016 013 024 degrees QTc Int : 425 ms Normal sinus rhythm Low voltage QRS Borderline ECG When compared with ECG of 17-JAN-2022 16:35, No significant change was found Referred By: Eusebia Moon Electronically Signed By:Lucas Cowan
[2022-01-20] MEDS: Nitroglycerin 0.4 MG TAB.SUBL SUBLINGUAL ×3 (01:00→01:10)
[2022-01-20] MEDS: Morphine Sulfate 4 MG/ML CARTRIDGE IVPUSH (01:18)
[2022-01-20] MEDS: Famotidine/PF 20 MG/2 ML VIAL IVPUSH (01:21)
--- NOTE | 2022-01-20 01:22 | HO.PM.IMCN ---
History of Present Illness Data of Consult Service Date: 01/20/22 Primary Care Provider: Morenita Mayers MD HPI We were asked to see this 46-year-old female with localized perforated diverticulitis pod 3 for evaluation of chest pain. Patient describes the pain as sharp stabbing substernal chest pain back of her chest. She is in a lot of distress, describes pain is 10/10, worse with deep inspirations, blood episode. Not relieved with nitroglycerin. Patient received 3 doses of nitroglycerin SL with no relief. She also received morphine with minimal number leave as well as Maalox and Pepcid. S she denies any abdominal pain nausea or vomiting, no diarrhea constipation, no urinary symptoms and no lower extremity edema. Vitals Were obtained which were stable, EKG shows normal sinus rhythm with no ST T wave abnormalities suggestive of ACS Review of Systems Review of Systems: Yes all other systems are reviewed and are negative [facility] Medical History Hypertension Morbid obesity Surgical History History of hysterectomy Social History Household Members: Spouse and Children Housing: House Alcohol intake: current Alcohol intake frequency: holidays/special occasions only Patient Tobacco Use Status: Never used Tobacco service: No Current occupational status: employed Meds Allergies Allergy/AdvReac Type Severity Reaction Status Date / Time No Known Allergies Allergy Verified 01/17/22 17:06 [No Known Allergies*] Active Medications: Current Medications Acetaminophen (Acetaminophen 325 Mg Tablet) 1,000 mg PO Q6H PRN PRN Reason: temperature Last Admin: 01/18/22 22:11 Dose: 1,000 mg Diltiazem HCl (Diltiazem Hcl 30 Mg Tablet) 30 mg PO DAILY PRN; Protocol PRN Reason: atrial fibrillation Piperacillin Sod/Tazobactam (Sod 4.5 gm/ Sodium Chloride) 50 mls @ 100 mls/hr IV Q6H [facility] Last Infusion: 01/20/22 00:22 Dose: Infused Ketorolac Tromethamine (Ketorolac Tromethamine 30 Mg/Ml Vial) 30 mg IVPUSH Q6H PRN PRN Reason: Pain, Severe (Pain Scale 7-10) Last Admin: 01/19/22 15:07 Dose: 30 mg Leflunomide (Leflunomide 10 Mg Tablet) 20 mg PO DAILY [facility] Last Admin: 01/19/22 07:54 Dose: 20 mg Morphine Sulfate (Morphine Sulfate 4 Mg/Ml Cartridge) 4 mg IVPUSH Q4H PRN; Protocol PRN Reason: Pain, Severe (Pain Scale 7-10) Last Admin: 01/20/22 01:18 Dose: 4 mg Nitroglycerin (Nitroglycerin 0.4 Mg Tab.Subl) 0.4 mg SUBLINGUAL Q5MX3 PRN PRN Reason: Chest Pain Ondansetron HCl (Ondansetron Hcl 4 Mg/2 Ml Vial) 4 mg IVPUSH Q8H PRN PRN Reason: Nausea and Vomiting Last Admin: 01/19/22 15:07 Dose: 4 mg Pantoprazole Sodium (Pantoprazole Sodium 40 Mg/10 Ml Vial) 40 mg IVPUSH DAILY@0630 [facility] Sodium Chloride (0.9 % Sodium Chloride Flush 3 Ml Syringe) 3 ml IVFLUSH QSHIFT [facility] Last Admin: 01/19/22 19:43 Dose: Not Given Valsartan (Valsartan 160 Mg Tablet) 160 mg PO DAILY [facility]; Protocol Last Admin: 01/19/22 07:54 Dose: 160 mg Home Medications Medication Instructions Recorded Confirmed Last Taken Type acetaminophen 325 mg tablet 650 mg PO Q6H PRN Pain 01/17/22 01/17/22 Unknown History (Tylenol) cholecalciferol (vitamin D3) 125 125 mcg PO DAILY 01/17/22 01/17/22 01/17/22 History mcg (5,000 unit) capsule diltiazem HCl 30 mg tablet 1 tab PO NEEDED PRN Atrial 01/17/22 01/17/22 Unknown History Fibrillation ferrous sulfate 325 mg (65 mg 325 mg PO DAILY 01/17/22 01/17/22 01/17/22 History iron) tablet flecainide 150 mg tablet 2 tab PO NEEDED PRN Atrial 01/17/22 01/17/22 Unknown History Fibrillation leflunomide 20 mg tablet 20 mg PO DAILY 01/17/22 01/17/22 01/17/22 History valsartan 160 mg tablet 160 mg PO DAILY 01/17/22 01/17/2222 History Physical Exam Vital Signs and Narrative: Vital Signs: Last Vital Signs Temp 97.8 F 01/19/22 23:40 Pulse 95 01/19/22 23:40 Resp 18 01/19/22 23:40 BP 129/60 01/19/22 23:40 Pulse Ox 97 01/19/22 23:40 O2 Del Method 01/19/22 23:40 BMI result Body Mass Index 57.4 Const: Other: Very obese patient, she appears in moderate distress General: cooperative and no acute distress Orientation/consciousness: patient oriented x3 Eyes: General: appearance normal, both eyes and all related structures Pupils: Equal, round and reactive pupils present Resp: Effort & Inspection: normal respiratory effort Auscultation: clear to auscultation bilaterally Cardio: Rate: regular rate Rhythm: regular rhythm GI: Palpation (GI): Soft to palpation Auscultation: normal bowel sounds Skin: General skin exam: no rashes or lesions noted Neuro: General: patient oriented x3 Cranial nerves: Yes Equal, round and reactive pupils present Cognition (Neuro): normal cognition Extrem: General: Yes normal to inspection and Yes no pedal edema Results Labs CBC and Chem 7: 01/19/22 09:57 01/19/22 09:57 Labs: Laboratory Results - last 24 hr 01/19/22 01/19/22 01/19/22 09:57 09:57 14:55 MCV 90.3 MCH 29.0 MCHC 32.1 RDW 13.5 Plt Count 188 MPV 11.2 Absolute Nucleated RBC 0.000 Nucleated RBC % (auto) 0.0 Anion Gap 13 Estim Creat Clear Calc 142.5 Estimated GFR > 60 Random Glucose 117 H Calcium 7.8 L C. difficile Tox B Gene NEGATIVE Assessment and Plan (1) Chest pain: Status: Acute Plan 46-year-old female who is in the hospital with localize perforated diverticulitis POD3 0 developed chest pain and therefore we are asked to see this patient in consultation. # chest pain - atypical - troponin obtained is negative, EKG obtained shows normal sinus rhythm with no significant ST T wave abnormality suggestive ups ACS - given the persistent pain, not relieved with morphine, Maalox or nitroglycerin and characteristic description of the pain I obtained a CT angiogram of the chest to rule out aortic dissection/aneurysm which was negative - recommend to start daily PPI before breakfast Thank you for this consult will now sign off For any further questions please re-consult
--- NOTE | 2022-01-20 01:29 | MHC.PIE ---
p; pt c/o ch pain 01/14 sharp. b/p 140/67 p 102 i; nitro 04 mf given x3, p; pt cont to c/o ch pain 01/14. i; dr vanegas notified; new order pepcid iv now, ekg now, hosp consult now. hosp notified - give prn morphine now e; hosp in room ekg wnl. iv pepcid given. labs ordered. will cont to monitor
[2022-01-20 02:32] LABS: Troponin-I High Sensitivity 9.6 ng/L (<3.5-17.0)
[2022-01-20] MEDS: HYDROmorphone HCl 0.5 MG/0.5 ML SYRINGE IVPUSH (02:47)
[2022-01-20] MEDS: iohexoL 350 MG/ML 100 ML INFUS..BTL IV (03:51)
[2022-01-20] MEDS: Pantoprazole Sodium 40 MG/10 ML VIAL IVPUSH (06:42)
[2022-01-20] MEDS: Leflunomide 10 MG TABLET 20 MG PO (09:18)
[2022-01-20] MEDS: Valsartan 160 MG TABLET PO (09:18)
[2022-01-20] MEDS: 0.9 % Sodium Chloride 1,000 ML 100 ML IVCONT ×2 (09:29→19:21)
[2022-01-20] MEDS: Magnesium Hydrox/Alum Hydrox 30 ML ORAL.SUSP 15 ML PO (13:47)
--- NOTE | 2022-01-20 15:01 | P.PNGS_ITS ---
Subjective Subjective Date of Service: 01/20/22 Interval history: pt overnight complaining of sharp mid chest pain - not like heartburn - hospitalist saw and worked up ekg trops, negative for cardiac cause, didnt improve with nitro, pepcid given and maalox ct angio- no PE no aortic issue did show a small lung nodule and some mild fibrosis and recommend [address] pt feeling better today - no chest pain no abdo pain having bowel movements and hungry Physical Exam Vital Signs: Vital Signs: Last Vital Signs Temp 98.0 F 01/20/22 12:00 Pulse 102 H 01/20/22 12:00 Resp 18 01/20/22 12:00 BP 138/90 H 01/20/22 12:00 Pulse Ox 98 01/20/22 12:00 O2 Del Method 01/20/22 12:00 BMI result Body Mass Index 57.4 Const: General: cooperative, alert and awake; No acute distress Resp: Auscultation: clear to auscultation bilaterally Cardio: Rate: regular rate Rhythm: regular rhythm GI: Other: soft nontender Objective Data Active Medications Acetaminophen (Acetaminophen 325 Mg Tablet) 1,000 mg PO Q6H PRN PRN Reason: temperature Last Admin: 01/18/22 22:11 Dose: 1,000 mg Documented By: MORRINL Al Hydroxide/Mg Hydroxide (Magnesium Hydrox/Alum Hydrox 30 Ml Oral.Susp) 15 ml PO Q4H PRN PRN Reason: heartburn Last Admin: 01/20/22 13:47 Dose: 15 ml Documented By: COTEMA Diltiazem HCl (Diltiazem Hcl 30 Mg Tablet) 30 mg PO DAILY PRN; Protocol PRN Reason: atrial fibrillation Piperacillin Sod/Tazobactam (Sod 4.5 gm/ Sodium Chloride) 50 mls @ 100 mls/hr IV Q6H [facility] Last Infusion: 01/20/22 14:16 Dose: 0 mls/hr Documented By: COTEMA Sodium Chloride (Ns) 1,000 mls @ 100 mls/hr IVCONT .Q10H [facility] Last Admin: 01/20/22 09:29 Dose: 100 mls/hr Documented By: COTCECILY Ketorolac Tromethamine (Ketorolac Tromethamine 30 Mg/Ml Vial) 30 mg IVPUSH Q6H PRN PRN Reason: Pain, Severe (Pain Scale 7-10) Last Admin: 01/19/22 15:07 Dose: 30 mg Documented By: BERTHA Leflunomide (Leflunomide 10 Mg Tablet) 20 mg PO DAILY [facility] Last Admin: 01/20/22 09:18 Dose: 20 mg Documented By: ASIM Morphine Sulfate (Morphine Sulfate 4 Mg/Ml Cartridge) 4 mg IVPUSH Q4H PRN; Protocol PRN Reason: Pain, Severe (Pain Scale 7-10) Last Admin: 01/20/22 01:18 Dose: 4 mg Documented By: GINA Nitroglycerin (Nitroglycerin 0.4 Mg Tab.Subl) 0.4 mg SUBLINGUAL Q5MX3 PRN PRN Reason: Chest Pain Last Admin: 01/20/22 01:10 Dose: 0.4 mg Documented By: GINA Ondansetron HCl (Ondansetron Hcl 4 Mg/2 Ml Vial) 4 mg IVPUSH Q8H PRN PRN Reason: Nausea and Vomiting Last Admin: 01/19/22 15:07 Dose: 4 mg Documented By: BERTHA Pantoprazole Sodium (Pantoprazole Sodium 40 Mg/10 Ml Vial) 40 mg IVPUSH DAILY@0630 [facility] Last Admin: 01/20/22 06:42 Dose: 40 mg Documented By: GINA Sodium Chloride (0.9 % Sodium Chloride Flush 3 Ml Syringe) 3 ml IVFLUSH QSHIFT [facility] Last Admin: 01/20/22 07:14 Dose: Not Given Documented By: ASIM Non-Admin Reason: Previously Administered Valsartan (Valsartan 160 Mg Tablet) 160 mg PO DAILY [facility]; Protocol Last Admin: 01/20/22 09:18 Dose: 160 mg Documented By: ASIM Labs CBC & Chem 7: 01/19/22 09:57 01/19/22 09:57 Labs: Laboratory Results - last 24 hr 01/19/22 01/19/22 01/20/22 14:55 17:58 01:52 Troponin I High Sens 9.6 C. difficile Tox B Gene NEGATIVE TNP Microbiology Microbiology Results: Microbiology 01/17/22 18:42 Blood Culture - Preliminary Blood - Venous No growth after 48 hours. 01/17/22 17:02 Blood Culture - Preliminary Blood - Venous No growth after 48 hours. Procedures Date of Service Date of Service: 01/20/22 Progress Note: A&P Assessment and plan (1) Diverticulitis of colon with perforation: Status: Acute Assessment and Plan: 46 yo female with localized perf diverticulitis doing well- slow advance of diet, clear liquids today and low residue tomorrow. cont with iv antibx and check wbc tomorrow if doing well consider dc home and po antibx and follow up outpt pt needs to lose weight and this is something she needs to work on. so far chest pain of uncertain etiology - hopefully will not recur will make sure her pcp orders repeat ct scan of chest in 6 months Time Spent With Patient Time: Total time spent is greater than 50% in coordination of care (as documented) at patient's floor/unit and/or counseling patient: Quality Stroke Does the patient have a stroke diagnosis?: No VTE Prior VTE?: No VTE Risk Level:: Surgical - low VTE Device Contraindication: N/A - Device Ordered VTE Drug Contraindication: N/A - Med Ordered
[2022-01-20] MEDS: 0.9 % Sodium Chloride Flush 3 ML SYRINGE IVFLUSH (15:06)
[2022-01-20] MEDS: Ketorolac Tromethamine 30 MG/ML VIAL IVPUSH (15:06)
[2022-01-21 03:48] VITALS: BP 135/75; PULSE 92; RESP 18; TEMP 36.6; O2SAT 98
[2022-01-21] MEDS: 0.9 % Sodium Chloride 1,000 ML 100 ML IVCONT (04:52)
[2022-01-21] MEDS: Pantoprazole Sodium 40 MG/10 ML VIAL IVPUSH (06:11)
[2022-01-21 06:42] LABS: MANUAL DIFF FLAG NO
[2022-01-21 06:46] LABS: Basophils Percent Auto 0.3 % (0-2); Eosinophils Absolute Auto 0.1 X10*3/uL (0.0-0.4); Eosinophils Percent Auto 1.4 % (0-4); Hematocrit 31.3 % (37.0-47.0); Imm Gran Abs Auto 0.04 X10*3/uL (0.00-0.03); Imm Gran Pct Auto 0.4 % (0.0-0.4); Lymphocytes Absolute Auto 0.9 X10*3/uL (1.2-4.9); Lymphocytes Percent Auto 9.3 % (20-40); Mean Corpuscular HGB Conc 31.9 g/dl (31.0-35.0); Mean Corpuscular Hemoglobin 29.2 pg (27.0-33.0); Mean Corpuscular Volume 91.3 fL (80.0-98.0); Mean Platelet Volume 10.8 fL (9.4-12.3); Monocytes Percent Auto 10.7 % (2-11); Neutrophils Absolute Auto 7.6 x10*3/uL (2.0-8.3); Neutrophils Percent Auto 77.9 % (45-73); Platelet Count 209 X10*3/uL (160-400); Red Blood Count 3.43 X10*6/uL (4.20-5.50); Red Cell Distribution Width 14.1 % (11.0-16.0); White Blood Count 9.7 X10*3/uL (4.8-10.8)
[2022-01-21] MEDS: Ketorolac Tromethamine 30 MG/ML VIAL IVPUSH (07:33)
[2022-01-21] MEDS: Valsartan 160 MG TABLET PO (07:33)
[2022-01-21 07:39] VITALS: BP 137/74; PULSE 92; RESP 20; TEMP 36.9; O2SAT 96
[2022-01-21] MEDS: Leflunomide 10 MG TABLET 20 MG PO (07:39)
[2022-01-21 12:00] VITALS: BP 156/79; PULSE 85; RESP 18; TEMP 36.3; O2SAT 99
--- NOTE | 2022-01-21 14:16 | MHC.CM.PN ---
PT WILL DC HOME TODAY WITH NO SERVICES FAMILY TO TRANSPORT
--- NOTE | 2022-02-28 21:30 | PM.DS ---
DS: Providers Provider Date of Service: 01/21/22 Date of admission: 01/17/22 21:02 Date of discharge: 01/21/22 Primary care physician: Morenita Mayers MD Admitting clinician: Eusebia Squires Sarai Consults: 01/20/22 01:17 Consult to Hospitalist Stat Consulting Provider: Hospitalist Reason For Exam: CHEST PAIN DS: Diagnosis Discharge Diagnosis (1) Diverticulitis of colon with perforation: Status: Acute DS: Summary Hospital Course Hospital Course: The patient is a 46-year-old female admitted with micro perforated diverticulitis and did well being admitted IV antibiotics converted now to p.o. on discharge and some bowel rest. By time of discharge she is tolerating diet well ambulating having good bowel movements and white count normal. Planus a follow-up visit Outpatient and maybe eventually get a colonoscopy Status at Discharge Cognitive/behavioral status at discharge: Good Functional status at discharge: independent ambulation Overall status at discharge: patient is not back to baseline Time Spent with Patient Time attestation: Total time spent providing and/or coordinating discharge services: Discharge coordination time: Less than 30 minutes Specific discharge activities: Finish antibiotics ambulate as tolerated diverticular diet Quality: Safe Use of Opioids Does Pt have an Active Cancer Diagnosis on the Problem List?: No Quality: Stroke Does the patient have a stroke diagnosis?: No Physical Exam Vital Signs: Vital Signs: Last Vital Signs Temp 97.3 F 01/21/22 12:00 Pulse 85 01/21/22 12:00 Resp 18 01/21/22 12:00 BP 156/79 H 01/21/22 12:00 Pulse Ox 99 01/21/22 12:00 O2 Del Method 01/21/22 12:00 BMI result Body Mass Index 57.4 GI: Other: Soft nontender nondistended no peritoneal signs DS: Data Imaging CT scan - abdomen: Radiologist's impression: ITS Impressions Abdomen/Pelvis CT 01/17/22 18:22 IMPRESSION: 1. Findings compatible with acute sigmoid diverticulitis and suspected microperforation with extensive pericolonic inflammatory change and a small amount of pericolonic free fluid. No well formed abscess identified. Chest CTA 01/20/22 03:55 IMPRESSION: 1. No evidence of aortic dissection or aneurysm. 2. Regions of subpleural cyst formation in the basilar right lower lobe, suspicious for mild fibrosis. 3. Right upper lobe nodule measuring 6 mm. According to the UPDATED 2017 Fleischner Society recommendations, the advised follow-up imaging for a single 6-8 mm solid nodule is: LOW RISK PATIENT: CT at 6-12 months, then consider CT at 18-24 months. HIGH RISK PATIENT: CT at 6-12 months, then at 18-24 months. Discharge Plan Discharge Anticipated Discharge Date/Time: 01/21/22 12:58 Patient Disposition: Home, Self-Care Discharge Diagnosis: perforated diverticulitis Referrals: Morenita Mayers MD [Primary Care Provider] - 1 Week Discharge Medications: New ciprofloxacin HCl 750 mg tablet 750 mg PO BID Qty: 20 0RF metronidazole 500 mg tablet 500 mg PO Q8H Qty: 30 0RF Continued flecainide 150 mg tablet 2 tab PO NEEDED PRN (Reason: Atrial Fibrillation) diltiazem HCl 30 mg tablet 1 tab PO NEEDED PRN (Reason: Atrial Fibrillation) valsartan 160 mg tablet 160 mg PO DAILY leflunomide 20 mg tablet 20 mg PO DAILY ferrous sulfate 325 mg (65 mg iron) tablet 325 mg PO DAILY cholecalciferol (vitamin D3) 125 mcg (5,000 unit) capsule 125 mcg PO DAILY acetaminophen [Tylenol] 325 mg tablet 650 mg PO Q6H PRN (Reason: Pain) Discharge Orders: Discharge Order (Routine); Ordered 01/21/22 Ordered By: Eusebia Moon Diet: Low fat, low cholesterol Activity on Discharge: As tolerated Stand Alone Forms: Patient Portal Discharge page Care Plan Goals: low fat light diet avoid constipation diverticular diet Health Concerns: follow up with pcp if having more chest pain Plan of Treatment: finish antibiotic course and over the counter pain meds fu with Dr Ramirez in the office later this week will most likely need an outpatient colonoscopy in 2 months Assessment: doing well Discharge Date/Time: 01/21/22 15:10
== END 2022-01-21 15:10 | disposition home or self-care (01) | DRG 392 ==
LOC: HO.ED 19:16 → HO.EDOVER 21:10 → HO.S3 01-18 18:39
PROVIDERS: Internal Medicine; Surgery; Admitting Provider Surgery; Emergency Provider Emergency Medicine; PCP Internal Medicine; Visit Provider Surgery
DX: K57.20 Diverticulitis of large intestine with perforation and abscess without bleeding (principal); Z68.43 Body mass index [BMI] 50.0-59.9, adult; E66.01 Morbid (severe) obesity due to excess calories; Z20.822 Contact with and (suspected) exposure to COVID-19; Z90.710 Acquired absence of both cervix and uterus; Z79.899 Other long term (current) drug therapy
CPT/HCPCS: 36415; 71275; 74176; 80048; 80076; 81003; 83605; 83690; 84484; 84702; 85025; 85027; 85610; 85730; 87040; 87493; 87635; 93005; 96361; 96365; 96375; 99285; J1170; J1885; J2270; J2405; J2543; Q9967

== ENCOUNTER 2023-08-21 08:45 | Outpatient (AMB) | payer OTHER, SELFPAY ==
[2023-08-21 09:32] VITALS: BP 148/84; PULSE 82; TEMP 36.6; O2SAT 98; BMI 60.1
--- NOTE | 2023-08-21 09:32 | AM.OFFWIN_ITS ---
Intake Vital Signs 08/21/23 09:32 Height 5 ft 5 in Weight 361 lb 4 oz BMI 60.1 BP 148/84 H Blood Pressure Location Rt brachial Position Sitting Pulse 82 Pulse Source Pulse Oximeter Temp 97.8 F Temp Source Oral Pulse Oximetry (%) 98 Oxygen Delivery Method Room Air Intake Visit Reasons: EST/uti(lobby) Intake Note: Patient Tobacco Use Status: Never used Tobacco Allergies No Known Allergies [No Known Allergies*] Allergy (Verified 01/17/22 17:06) Medication List - Last Reconciled 08/21/23 by Hui Coombs MD acetaminophen (Tylenol) 650 mg PO Q6H PRN cholecalciferol (vitamin D3) 125 mcg PO DAILY ciprofloxacin HCl 750 mg PO BID diltiazem HCl 1 tab PO NEEDED PRN ferrous sulfate 325 mg PO DAILY flecainide 2 tabs PO NEEDED PRN leflunomide 20 mg PO DAILY metronidazole 500 mg PO Q8H valsartan 160 mg PO DAILY HPI EST/uti(lobby) HPI Details 47-year-old female came in today to be e valuated for possible cystitis Patient is having frequency and dysuria for the past 48 hours There is no back pain no fever no chills no nausea no vomiting PFSH Medical History Morbid obesity Hypertension Surgical History History of hysterectomy Social History Household Members: Spouse and Children Housing: House Alcohol intake: current Alcohol intake frequency: holidays/special occasions only Patient Tobacco Use Status: Never used Tobacco service: No Current occupational status: employed Review of Systems Const All systems reviewed & are unremarkable except as noted in HPI and below Physical Exam Vital Signs: Last Vital Signs Temp 97.8 F 08/21/23 09:32 Pulse 82 08/21/23 09:32 BP 148/84 H 08/21/23 09:32 Pulse Ox 98 08/21/23 09:32 Oxygen Delivery Method Room Air 08/21/23 09:32 BMI result Body Mass Index 60.1 Const General: no acute distress Orientation/consciousness: patient oriented x3 Eyes General: appearance normal, both eyes and all related structures Resp Effort & Inspection: normal respiratory effort and able to speak in complete sentences Auscultation: clear to auscultation bilaterally General: Yes no CVA tenderness Back/Spine/Pelvis Back: no CVA tenderness Neuro General: patient oriented x3 Psych Mental Status: mental status grossly normal Assessment & Plan Assessment & Plan (1) Acute cystitis: Code(s): N30.00 - Acute cystitis without hematuria Qualifiers: Hematuria presence: with hematuria Qualified Code(s): N30.01 - Acute cystitis with hematuria Plan 47-year-old female came in today to be evaluated for possible cystitis Patient is having frequency and dysuria for the past 48 hours There is no back pain no fever no chills no nausea no vomiting I am treating her with Macrobid 100 mg b.i.d. for 5 days Patient was instructed to push fluids Urine sent for culture Orders: Orders Urine Culture Today N30.00 - Acute cystitis without hematuria Medications: New nitrofurantoin monohyd/m-cryst 100 mg (Macrobid) must administer with a meal/food 100 mg PO Q12H 10 caps 0RF 5 days Discontinued ciprofloxacin HCl Discontinued Reason: Patient Completed Course 750 mg PO BID 20 tabs 0RF Coding Level of Care Code Est Pt Level 3 (65599) Diagnoses Acute cystitis with hematuria N30.01 Hematuria presence: with hematuria
== END 2023-08-21 10:24 | disposition home or self-care (01) ==
PROVIDERS: PCP Internal Medicine; Visit Provider Internal Medicine
DX: N30.01 Acute cystitis with hematuria (principal)
CPT/HCPCS: 81003; 99213

== ENCOUNTER 2023-08-21 11:26 | Outpatient (REF) | payer OTHER, SELFPAY | END 2023-08-21 11:27 | disposition home or self-care (01) | LOC: HO.HMGCLNP 11:26 | PROVIDERS: Visit Provider Internal Medicine | DX: N30.00 Acute cystitis without hematuria (principal) | CPT/HCPCS: 87086; 87088; 87186 ==

== ENCOUNTER 2023-08-30 09:48 | Outpatient (AMB) | payer OTHER, SELFPAY ==
--- NOTE | 2023-08-30 10:13 | AM.OFFWIN_ITS ---
Intake Vital Signs 08/30/23 10:17 Height 5 ft 5 in BP 132/90 H Blood Pressure Location Lt brachial Position Sitting Pulse 66 Pulse Source Pulse Oximeter Temp 97.5 F Temp Source Temporal Artery Scan Pulse Oximetry (%) 98 Oxygen Delivery Method Room Air Intake Visit Reasons: EP ?UTI Intake Note: pt is here today for UTI started 1 week ago Patient Tobacco Use Status: Never used Tobacco Allergies No Known Allergies [No Known Allergies*] Allergy (Verified 08/30/23 10:18) Do you need a note to return to daycare/school/sports/work: No HPI HPI Comments History of Present Illness Details 47 y/o female patient who presents to [facility] in clinic with c/o Urinary symptoms x 1 week. Pt was seen a week ago and diagnosed with UTI and given Macrobid. Today she returns to clinic with similar symptoms and no improvement. Denies fevers, chills, nausea or vomiting. Denies vaginal symptoms. PFSH Medical History Morbid obesity Hypertension Surgical History History of hysterectomy Social History Household Members: Spouse and Children Housing: House Alcohol intake: current Alcohol intake frequency: holidays/special occasions only Patient Tobacco Use Status: Never used Tobacco service: No Current occupational status: employed Review of Systems Const All systems reviewed & are unremarkable except as noted in HPI and below Physical Exam Vital Signs: Last Vital Signs Temp 97.5 F 08/30/23 10:17 Pulse 66 08/30/23 10:17 BP 132/90 H 08/30/23 10:17 Pulse Ox 98 08/30/23 10:17 Oxygen Delivery Method Room Air 08/30/23 10:17 Const General: comfortable and no acute distress Nutritional Appearance: obese Orientation/consciousness: patient oriented x3 General: Yes bladder normal to inspection and Yes CVA tenderness Back/Spine/Pelvis Back: CVA tenderness Neuro General: patient oriented x3 and gait normal Psych Appearance: grossly normal Speech and movement: Clear speech present Results AMB Urinalysis, Automated UA Leukoctes 500 Estefania/uL Last Edit by Dallas Zayas CMA on 08/30/23 10:2 9 UA Nitrite Negative Last Edit by Dlalas Zayas CMA on 08/30/23 10:29 UA Urobilinogen 0.2 mg/dL Last Edit by Dallas Zayas CMA on 08/30/23 10 :29 UA Protein 0 mg/dL Last Edit by Dallas Zayas CMA on 08/30/23 10:29 UA pH 6.5 Last Edit by Dallas Zayas CMA on 08/30/23 10:29 UA Blood 0 Gregg/uL Last Edit by Dallas Zayas CMA on 08/30/23 10:29 UA Specific [place] 1.010 Last Edit by Dallas Zayas CMA on 08/30/23 10:29 UA Ketone Negative Last Edit by Dallas Zayas CMA on 08/30/23 10:29 UA Bilirubin 0 mg/dL Last Edit by Dallas Zayas CMA on 08/30/23 10:29 UA Glucose 0 mg/dL Last Edit by Dallas Zayas CMA on 08/30/23 10:29 Results Reviewed Results Reviewed: Laboratory Last Values Urine pH (Auto) 6.5 08/30/23 10:27 Specific [place] (Auto) 1.010 08/30/23 10:27 Urine Protein (Auto) 0 mg/dL 08/30/23 10:27 Glucose (UA)(Auto) 0 mg/dL 08/30/23 10:27 Urine Ketones (Auto) Negative 08/30/23 10:27 Urine Blood (Auto) 0 Gregg/uL 08/30/23 10:27 Urine Nitrite (Auto) Negative 08/30/23 10:27 Urine Bilirubin (Auto) 0 mg/dL 08/30/23 10:27 Urine Urobilinogen (Auto) 0.2 mg/dL 08/30/23 10:27 Leukocyte Esterase (Auto) 500 Estefania/uL 08/30/23 10:27 Assessment & Plan Assessment & Plan (1) Acute cystitis: Code(s): N30.00 - Acute cystitis without hematuria Qualifiers: Hematuria presence: with hematuria Qualified Code(s): N30.01 - Acute cystitis with hematuria Plan: - Hydrate well with water - Clean from front/back - Urinate and wash up after intercourse Orders: Orders UA CC w/rflx Micro + Cult Today N30.00 - Acute cystitis without hematuria Marla De La Cruz NP AMB Urinalysis Automated Today Z13.9 - Encounter for screening, unspecified [facility] [place] Medications: New levofloxacin 750 mg PO DAILY 7 days 7 tabs 0RF N30.00 - Acute cystitis without hematuria Marla De La Cruz NP Coding Level of Care Code Est Pt Level 3 (84681) Diagnoses Acute cystitis with hematuria N30.01 Hematuria presence: with hematuria Time Spent (min) 15
[2023-08-30 10:17] VITALS: BP 132/90; PULSE 66; TEMP 36.4; O2SAT 98
== END 2023-08-30 11:25 | disposition home or self-care (01) ==
PROVIDERS: PCP Internal Medicine; Visit Provider Nurse Practitioner Family
DX: N30.01 Acute cystitis with hematuria (principal)
CPT/HCPCS: 81003; 99213

== ENCOUNTER 2023-08-30 10:34 | Outpatient (REF) | payer OTHER, SELFPAY ==
[2023-08-30 13:56] LABS: Appearance Urine Cloudy; Color Urine Yellow; Glucose Urine UA Negative (Negative); Leukocyte Esterase Urine Large (3+) (Negative); Nitrite Urine Negative (Negative); UMIC TRIGGER UACC YES; Urine Blood Negative (Negative); Urine Ketones Negative (Negative); Urine Protein Negative (Neg-Trace)
[2023-08-30 14:05] LABS: Bacteria Urine 4+ (None Seen); Hyaline Casts Urine 0-2 /LPF (0-2); RBC Urine 0-2 /HPF (0-2); Squamous Epithelial Cell Urine 0-2 /HPF (0-2); UACC Culture Trigger YES; WBC Urine >50 /HPF (0-5)
== END 2023-08-30 10:35 | disposition home or self-care (01) ==
LOC: HO.LAB 10:34
PROVIDERS: Visit Provider Nurse Practitioner Family
DX: N30.00 Acute cystitis without hematuria (principal)
CPT/HCPCS: 81001; 87086; 87088; 87186